=== PATIENT | male | born 1950 | race Hispanic/Latino ===

== ENCOUNTER 2017-10-29 18:20 | Emergency (ER) | payer BC ==
[2017-10-29 18:53] VITALS: RESP 18; TEMP 97.4; O2SAT 100
--- NOTE | 2017-10-29 19:04 | ED PDOC ---
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 Patient stated he slipped and twisted his right knee. Patient stated he held o to steps rail, which he prevented falling. Time/Duration: Prior to Arrival Context: Home Past Medical History - Provider Review Nursing Documentation Reviewed: Yes - Cardiac Hx Cardiac Disorders: Yes Hx Hypertension: Yes - Pulmonary Hx Respiratory Disorders: Yes Hx Pulmonary Embolism: Yes - Neurological Hx Neurological Disorder: No - HEENT Hx HEENT Disorder: No - Renal Hx Renal Disorder: No - Endocrine/Metabolic Hx Endocrine Disorders: Yes Hx Diabetes Mellitus Type 2: Yes Hx Hypothyroidism: Yes - Hematological/Oncological Hx Blood Disorders: No - Integumentary Hx Dermatological Disorder: No - Musculoskeletal/Rheumatological Hx Musculoskeletal Disorders: Yes Hx Back Pain: Yes - Gastrointestinal Hx Gastrointestinal Disorders: No - Genitourinary/Gynecological Hx Genitourinary Disorders: No - Psychiatric Hx Psychophysiologic Disorder: No Hx Substance Use: No - Surgical History Hx Cardiac Catheterization: Yes Hx Eye Surgery: Yes Hx Musculoskeletal Surgery: Yes (spinal fusion 05/2017) Family/Social History - Physician Review Nursing Documentation Reviewed: Yes Family/Social History: Other (noncontributory) Smoking Status: Never Smoked Hx Alcohol Use: Yes Frequency of alcohol use: Socially Hx Substance Use: No Allergies/Home Meds Allergies/Adverse Reactions: Allergies valsartan [From Diovan] Allergy (Verified 10/29/17 18:42) ANAPHYLAXIS Review of Systems - Review of Systems Constitutional: Normal. absent: Fatigue, Weight Change, Fevers Eyes: Normal ENT: Normal Respiratory: Normal Cardiovascular: Normal Gastrointestinal: Normal Genitourinary Male: Normal Musculoskeletal: Other (right anterior knee injury) Skin: Normal Neurological: Normal Endocrine: Normal Hemo/Lymphatic: Normal Psychiatric: Normal Physical Exam Vital Signs Temp Pulse Resp BP Pulse Ox 10/29/17 18:34 97.4 F L 64 18 172/100 H 100 Temperature: Afebrile Blood Pressure: Normal Pulse: Regular Respiratory Rate: Normal Appearance: Positive for: Well-Appearing, Non-Toxic, Comfortable Pain Distress: None Mental Status: Positive for: Alert and Oriented X 3 - Systems Exam Head: Present: Atraumatic, Normocephalic Pupils: Present: PERRL Extroacular Muscles: Present: EOMI Conjunctiva: Present: Normal Mouth: Present: Moist Mucous Membranes Neck: Present: Normal Range of Motion Upper Extremity: Present: Normal Inspection, Normal ROM Lower Extremity: Present: NORMAL PULSES, Neurovascularly Intact, Capillary Refill < 2 s, Other ( (+) possible quadriceps tendon rupture. Patient unable to extend right lower leg). No: Normal ROM, Deformity, Temperature Abnormalties Neurological: Present: GCS=15, CN II-XII Intact, Speech Normal, Motor Func Grossly Intact, Normal Sensory Function, Normal Cerebellar Funct, Gait Normal ( with the use of cane, and knee immobilizer) Skin: Present: Warm, Dry, Normal Color. No: Rashes Psychiatric: Present: Alert, Oriented x 3, Normal Insight, Normal Concentration Medical Decision Making ED Course and Treatment: 10/29/17 20:[address] Tavarez regarding patient knee injury, and suspected to have ruptured quadriceps tendon. He agrees with plan to discharge patient home , and to follow up his office on November 03. He recommended knee immobilizer. Re-evaluation Time: 20:10 Reassessment Condition: Re-examined, Improved - RAD Interpretation Narrative RAD Interpretations (Text): 10/29/17 20:11 Knee x-rays: No Fx. (+) STS Radiology Orders: 10/29/17 19:01 KNEE W PATELLA RIGHT 3 VIEW [RAD] Stat - Medication Orders Current Medication Orders: Discontinued Medications Ketorolac Tromethamine (Toradol) 30 mg IM STAT STA Stop: 10/29/17 19:03 Last Admin: 10/29/17 19:30 Dose: 30 mg MAR Pain Assessment Document 10/29/17 19:30 [email or web address] (Rec: 10/29/17 19:32 [email or web address] [id number]) Pain Reassessment Is this a pain reassessment? No Sleep Is patient sleeping during reassessment? No Presence of Pain Presence of Pain Yes Pain Scale Used Pain Scale Used Numeric Location Left, Right or Bilateral Right Pain Location Body Site Knee Description Description Constant Intensity of Pain at present 7 Pain Behavior Facial Grimacing Aggravating Factors Changing Position Alleviating Factors/Management Medication Techniques Alleviating Factors Medication IM Administration Charges Document 10/29/17 19:30 [email or web address] (Rec: 10/29/17 19:32 [id number]) Injection Site MAR Injection Site Right Deltoid Charges for Administration # of IM Administrations 1 Disposition/Present on Arrival - Present on Arrival Any Indicators Present on Arrival: No History of DVT/PE: Yes History of Uncontrolled Diabetes: No Urinary Catheter: No History of Decub. Ulcer: No History Surgical Site Infection Following: None - Disposition Have Diagnosis and Disposition been Completed?: Yes Diagnosis: Quadriceps tendon rupture Disposition: HOME/ ROUTINE Disposition Time: 20:11 Patient Plan: Discharge Patient Problems: Current Active Problems Problem Status Onset Quadriceps tendon rupture Acute Condition: GOOD Discharge Instructions (ExitCare): Tendon Repair (DC) Additional Instructions: Call Dr. Tavarez Orthopedist office on FridayNovember 03, in the morning. Use knee immobilizer . Take medication as instructed. Be careful to walk with knee immobilizer. Return to emergency if symptoms worsen. Prescriptions: Ibuprofen [Motrin] 400 mg PO Q8H PRN #20 tab PRN Reason: Pain, Severe (8-10) Referrals: Link Kinney MD [Primary Care Provider] - Follow up with primary Yang Tavarez DO [Staff Provider] - Follow up with primary Forms: [facility] (Lebanese), WORK NOTE
[2017-10-29 21:35] VITALS: BP 174/62; PULSE 72
--- NOTE | 2017-10-30 08:07 | RAD ---
PROCEDURE: Right Knee Radiographs. HISTORY: pain COMPARISON: None. FINDINGS: BONES: Normal. No fracture. JOINTS: Normal. No osteoarthritis. JOINT EFFUSION: None. OTHER FINDINGS: There is swelling and irregularity of the distal quadriceps tendon suspicious for quadriceps tendon tear IMPRESSION: There is swelling and irregularity of the distal quadriceps tendon suspicious for quadriceps tendon tear
== END 2017-10-29 21:04 | disposition home or self-care (01) ==
LOC: ED 18:20
DX: S76.111A Strain of right quadriceps muscle, fascia and tendon, initial encounter (principal); W01.0XXA Fall on same level from slipping, tripping and stumbling without subsequent striking against object, initial encounter; I10 Essential (primary) hypertension; E11.9 Type 2 diabetes mellitus without complications; E03.9 Hypothyroidism, unspecified
CPT/HCPCS: 73562; 96372; 99284; J1885